=== PATIENT | female | born 1965 | race American Indian/Alaskan Native ===

== ENCOUNTER 2020-05-30 19:38 | Emergency (ER) | payer MEDICARE, MEDICAID ==
[2020-05-30] MEDS ORDERED: SODIUM CHLORIDE 0.9% 1000 ML 1,000 ML IV ONE (21:02)
--- NOTE | 2020-05-30 21:13 | Emergency Department Report ---
ED Abdominal Pain HPI - General Chief Complaint: Abdominal Pain Stated Complaint: ABDOMINAL PAIN PUI?: No Time Seen by Provider: 05/30/20 20:50 Source: patient, EMS Mode of arrival: Stretcher Limitations: No Limitations - History of Present Illness Initial Comments: Patient is a 54-year-old female that presents emergency room with complaints of abdominal pain. Patient states her abdominal pain is generalized. Patient dates her abdominal pain is a 10 out of 10. Patient states the pain is worse with movement and better with rest. Patient denies fever. Patient also complains of occasional nausea and vomiting. Patient was sent here from her personal shelter. 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 I discussed the patient's care and histories with patient's family member. MD Complaint: abdominal pain -: Sudden Location: diffuse Radiation: none Migration to: no migration Severity: severe Severity scale (0 -10): 10 Consistency: constant Improves With: rest Worsens With: movement Associated Symptoms: nausea, vomiting. denies: diarrhea, fever, chills, constipation, dysuria, hematemesis, hematochezia, melena, hematuria, syncope - Related Data LMP (females 10-50): unknown Previous Rx's Medication Instructions Recorded Last Taken Type Docusate Sodium [Colace CAP] 100 cap PO BID #30 cap 05/14/20 Unknown Rx Escitalopram [Lexapro] 10 mg PO DAILY PRN #30 05/14/20 Unknown Rx Insulin Glargine,Hum.rec.anlog 10 units SQ HS #1 05/14/20 Unknown Rx [Lantus Solostar] Levothyroxine [Synthroid] 75 mcg PO DAILY #30 05/14/20 Unknown Rx Lipase/Protease/Amylase [Creon Dr 12,000 units PO TID #90 cap 05/14/20 Unknown Rx 12,000 Units] OLANzapine [ZyPREXA] 10 mg PO HS #60 tablet 05/14/20 Unknown Rx Pantoprazole [Protonix TAB] 40 mg PO BID #60 05/14/20 Unknown Rx Primidone [Mysoline] 50 mg PO QHS #30 05/14/20 Unknown Rx hydrOXYzine PAMOATE [Vistaril] 50 cap PO TID #90 cap 05/14/20 Unknown Rx traZODone [Desyrel] 75 mg PO QHS #45 tablet 05/14/20 Unknown Rx Ondansetron [Zofran Odt] 4 mg PO Q6HR PRN #20 tab.rapdis 05/31/20 Unknown Rx Sennosides/Docusate Sodium 1 each PO BID 30 Days #60 tablet 05/31/20 Unknown Rx [Senna-S 8.6-50 mg Tablet] Allergies Allergy/AdvReac Type Severity Reaction Status Date / Time garlic Allergy Unknown Verified 05/07/20 08:26 Penicillins Allergy Unknown Verified 05/07/20 08:26 ED Review of Systems ROS: Stated complaint: ABDOMINAL PAIN Other details as noted in HPI Constitutional: denies: chills, fever Eyes: denies: eye pain, eye discharge, vision change ENT: denies: ear pain, throat pain Respiratory: denies: cough, shortness of breath, wheezing Cardiovascular: denies: chest pain, palpitations Endocrine: no symptoms reported Gastrointestinal: abdominal pain, nausea, vomiting. 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 drug abuse. Anoxic brain injury secondary to overdose - Surgical History Past Surgical History?: Yes Hx Cholecystectomy: Yes Additional Surgical History: Bariatric surgery. Hysterectomy - Family History Family history: no significant - Social History Smoking Status: Former Smoker - Medications Home Medications: Home Medications Medication Instructions Recorded Confirmed Last Taken Type Docusate Sodium [Colace CAP] 100 cap PO BID #30 cap 05/14/20 Unknown Rx Escitalopram [Lexapro] 10 mg PO DAILY PRN #30 05/14/20 Unknown Rx Insulin Glargine,Hum.rec.anlog 10 units SQ HS #1 05/14/20 Unknown Rx [Lantus Solostar] Levothyroxine [Synthroid] 75 mcg PO DAILY #30 05/14/20 Unknown Rx Lipase/Protease/Amylase [Creon Dr 12,000 units PO TID #90 cap 05/14/20 Unknown Rx 12,000 Units] OLANzapine [ZyPREXA] 10 mg PO HS #60 tablet 05/14/20 Unknown Rx Pantoprazole [Protonix TAB] 40 mg PO BID #60 05/14/20 Unknown Rx Primidone [Mysoline] 50 mg PO QHS #30 05/14/20 Unknown Rx hydrOXYzine PAMOATE [Vistaril] 50 cap PO TID #90 cap 05/14/20 Unknown Rx traZODone [Desyrel] 75 mg PO QHS #45 tablet 05/14/20 Unknown Rx Ondansetron [Zofran Odt] 4 mg PO Q6HR PRN #20 tab.rapdis 05/31/20 Unknown Rx Sennosides/Docusate Sodium 1 each PO BID 30 Days #60 tablet 05/31/20 Unknown Rx [Senna-S 8.6-50 mg Tablet] ED Physical Exam - General Limitations: No Limitations General appearance: alert, in no apparent distress - Head Head exam: Present: atraumatic, normocephalic - Eye Eye exam: Present: normal appearance - ENT ENT exam: Present: mucous membranes moist - Neck Neck exam: Present: normal inspection - Respiratory Respiratory exam: Present: normal lung sounds bilaterally. Absent: respiratory distress - Cardiovascular Cardiovascular Exam: Present: regular rate, normal rhythm. Absent: systolic murmur, diastolic murmur, rubs, gallop - GI/Abdominal GI/Abdominal exam: Present: soft, tenderness (Generalized tenderness), normal bowel sounds, other (Midline scar) - Extremities Exam Extremities exam: Present: normal inspection - Back Exam Back exam: Present: normal inspection - Neurological Exam Neurological exam: Present: alert, altered (Patient is alert and oriented x2) - Psychiatric Psychiatric exam: Present: normal affect, normal mood - Skin Skin exam: Present: warm, dry, intact, normal color. Absent: rash ED Course Vital Signs 05/30/20 05/30/20 05/30/20 20:20 20:30 20:45 Temperature 98.4 F Pulse Rate 61 60 59 L Respiratory 24 18 22 Rate Blood Pressure 102/75 97/67 Blood Pressure 93/61 [Left] O2 Sat by Pulse 100 97 Oximetry 05/30/20 05/30/20 05/30/20 21:00 21:20 21:46 Temperature Pulse Rate 57 L 62 58 L Respiratory 22 18 19 Rate Blood Pressure 106/73 106/73 106/73 Blood Pressure [Left] O2 Sat by Pulse Oximetry 05/30/20 05/30/20 05/30/20 22:00 22:15 22:16 Temperature Pulse Rate 63 64 Respiratory 15 20 18 Rate Blood Pressure 113/69 109/69 Blood Pressure [Left] O2 Sat by Pulse Oximetry 05/30/20 05/30/20 05/30/20 22:30 23:00 23:04 Temperature Pulse Rate 64 67 Respiratory 16 15 18 Rate Blood Pressure 111/71 124/71 Blood Pressure [Left] O2 Sat by Pulse 100 Oximetry 05/30/20 05/30/20 05/30/20 23:16 23:30 23:46 Temperature Pulse Rate 69 69 65 Respiratory 13 17 14 Rate Blood Pressure 115/64 115/67 131/72 Blood Pressure [Left] O2 Sat by Pulse 98 99 99 Oximetry 05/30/20 05/31/20 05/31/20 23:48 00:00 00:04 Temperature Pulse Rate 66 67 Respiratory 13 15 18 Rate Blood Pressure 131/72 121/65 Blood Pressure [Left] O2 Sat by Pulse 99 99 Oximetry 05/31/20 00:16 Temperature Pulse Rate 60 Respiratory 16 Rate Blood Pressure 149/67 Blood Pressure [Left] O2 Sat by Pulse 100 Oximetry - Reevaluation(s) Reevaluation #1: I discussed case with the patient's daughter for further history of presenting illness and past medical history. 05/30/20 21:31 Reevaluation #2: I discussed all results and clinical findings with patient. I discussed plan of care with patient. Patient agrees with plan of care. Patient is stable for discharge. Patient will be discharged home. Patient given discharge instructions. Patient voiced understanding of discharge instructions. 05/31/20 00:11 ED Medical Decision Making - Lab Data Result diagrams: 05/30/20 21:05 05/30/20 21:05 - Radiology Data Radiology results: report reviewed CT ABDOMEN AND PELVIS WITH CONTRAST INDICATION / CLINICAL INFORMATION: Pt complains of "Generalized" abdominal pain x 1 day. TECHNIQUE: Axial CT images were obtained through the abdomen and pelvis after 100 mL Omnipaque [address] scans at this location are performed using CT dose reduction for ALARA by means of automated exposure control. COMPARISON: None available. FINDINGS: LOWER CHEST: Nonspecific reticular opacities in the visualized lung bases. LIVER: No significant abnormality. BILIARY SYSTEM: Prior cholecystectomy. Mild intrahepatic biliary dilation is likely secondary to postcholecystectomy state. PANCREAS: Atrophic with parenchymal calcifications compatible with chronic pancreatitis. SPLEEN: No significant abnormality. ADRENALS: The left adrenal gland is unremarkable. There is a 1.7 cm indeterminate right adrenal nodule. 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 STOMACH / BOWEL: Postsurgical change related to gastric bypass without evidence of complication. Large colonic stool burden. PERITONEUM: No free fluid. No free air. No fluid collection. LYMPH NODES: No significant adenopathy. VASCULAR STRUCTURES: No significant abnormality. URINARY BLADDER: No significant abnormality. REPRODUCTIVE ORGANS: Prior hysterectomy. No adnexal mass. ADDITIONAL FINDINGS: None. SKELETAL SYSTEM: No significant abnormality. IMPRESSION: 1. Nonspecific reticular opacities in the visualized lung bases, correlate for any signs and symptoms of infection. 2. Large colonic stool burden suggestive of constipation. 3. Sequela of chronic pancreatitis. 4. Mild intrahepatic biliary dilation likely secondary to postcholecystectomy state, though recommend correlation with liver function tests. 5. A 1.7 cm right adrenal nodule is indeterminate. Recommend nonemergent adrenal protocol CT or MRI for further characterization. - Medical Decision Making Patient is a 54-year-old female that presents emergency room with generalized abdominal pain. Patient has a history of pancreatitis. Patient had labs done which were essentially unremarkable. Patient's UA was negative for UTI. Patient had a CT scan of the abdomen. Patient CT showed constipation and chronic pancreatitis. Patient stable for discharge. Patient discharged home. Patient's daughter was given her discharge and all of her clinical results. Patient discharged home with Zofran and a constipation medications, senna S. Patient already on Colace with instructions to take along with Colace. Patient discharged back to her personal shelter. - Differential Diagnosis Pancreatitis, abdominal pain, gastroenteritis, nausea, vomiting, UTI Critical care attestation.: If time is entered above; I have spent that time in minutes in the direct care of this critically ill patient, excluding procedure time. ED Disposition Clinical Impression: Gastroenteritis Abdominal pain Qualifiers: Abdominal location: generalized Qualified Code(s): R10.84 - Generalized abdominal pain Chronic pancreatitis Qualifiers: Pancreatitis type: unspecified pancreatitis type Qualified Code(s): K86.1 - Other chronic pancreatitis Nausea & vomiting Qualifiers: Vomiting type: unspecified Vomiting Intractability: non-intractable Qualified Code(s): R11.2 - Nausea with vomiting, unspecified Constipation Qualifiers: Constipation type: unspecified constipation type Qualified Code(s): K59.00 - Constipation, unspecified Disposition: TO HOME OR SELFCARE Is pt being admited?: No Does the pt Need Aspirin: No Condition: Stable Instructions: Constipation (ED), High Fiber Diet (ED), Gastroenteritis (ED), Acute Nausea and Vomiting (ED), Abdominal Pain (ED) Additional Instructions: Patient to follow-up with primary care in 2 to 3 days. Patient to follow-up with gastroenterology in 2 to 3 days. Patient to rest. Patient to increase water. Patient to eat a brat diet. Patient to take Tylenol or ibuprofen as needed for pain. Patient to take meds as directed. Patient to return to the ER if condition worsens, changes or new symptoms arise. Prescriptions: Sennosides/Docusate Sodium [Senna-S 8.6-50 mg Tablet] 1 each PO BID 30 Days #60 tablet Ondansetron [Zofran Odt] 4 mg PO Q6HR PRN #20 tab.rapdis PRN Reason: Nausea And Vomiting Referrals: PRIMARY CAREMD [Primary Care Provider] - 2-3 Days GÓMEZ FERNANDEZ MD [Staff Physician] - 2-3 Days Time of Disposition: 00:23
[2020-05-30] MEDS ORDERED: HYDROmorphone 1 MG/1 ML INJ IV ONE (21:30)
[2020-05-30 21:32] LABS: Basophils # (Auto) 0.1 K/mm3 (0.0-0.1); Basophils % (Auto) 0.8 % (0.0-1.8); Eosinophils # (Auto) 0.1 K/mm3 (0.0-0.4); Hematocrit 36.2 % (30.3-42.9); Hemoglobin 12.5 gm/dl (10.1-14.3); Lymphocytes # (Auto) 3.7 K/mm3 (1.2-5.4); Lymphocytes % (Auto) 39.1 % (13.4-35.0); Mean Corpuscular HGB Conc 35 % (30-34); Mean Corpuscular Volume 87 fl (79-97); Monocytes # (Auto) 0.7 K/mm3 (0.0-0.8); Monocytes % (Auto) 7.3 % (0.0-7.3); Platelet Count 211 K/mm3 (140-440); Red Blood Count 4.16 M/mm3 (3.65-5.03); Red Cell Distribution Width 15.9 % (13.2-15.2)
[2020-05-30 21:43] LABS: Alanine Aminotransferase 29 units/L (7-56); Albumin 3.6 g/dL (3.9-5); BUN/Creatinine Ratio 14; Blood Urea Nitrogen 17 mg/dL (7-17); Calcium 9.3 mg/dL (8.4-10.2); Hemolysis Index 5
[2020-05-30 21:47] LABS: Bilirubin,Direct < 0.2 mg/dL (0-0.2)
[2020-05-30] MEDS ORDERED: fentaNYL 100 MCG/2 ML INJ IV ONE (23:00)
--- NOTE | 2020-05-30 23:15 | Cat Scan Report ---
CT ABDOMEN AND PELVIS WITH CONTRAST INDICATION / CLINICAL INFORMATION: Pt complains of "Generalized" abdominal pain x 1 day. TECHNIQUE: Axial CT images were obtained through the abdomen and pelvis after 100 mL Omnipaque [address] scans at this location are performed using CT dose reduction for ALARA by means of automated exposure control. COMPARISON: None available. FINDINGS: LOWER CHEST: Nonspecific reticular opacities in the visualized lung bases. LIVER: No significant abnormality. BILIARY SYSTEM: Prior cholecystectomy. Mild intrahepatic biliary dilation is likely secondary to post cholecystectomy state. PANCREAS: Atrophic with parenchymal calcifications compatible with chronic pancreatitis. SPLEEN: No significant abnormality. ADRENALS: The left adrenal gland is unremarkable. There is a 1.7 cm indeterminate right adrenal nodul e. 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 STOMACH / BOWEL: Postsurgical change related to gastric bypass without evidence of complication. Larg e colonic stool burden. PERITONEUM: No free fluid. No free air. No fluid collection. LYMPH NODES: No significant adenopathy. VASCULAR STRUCTURES: No significant abnormality. URINARY BLADDER: No significant abnormality. REPRODUCTIVE ORGANS: Prior hysterectomy. No adnexal mass. ADDITIONAL FINDINGS: None. SKELETAL SYSTEM: No significant abnormality. IMPRESSION: 1. Nonspecific reticular opacities in the visualized lung bases, correlate for any signs and symptoms of infection. 2. Large colonic stool burden suggestive of constipation. 3. Sequela of chronic pancreatitis. 4. Mild intrahepatic biliary dilation likely secondary to postcholecystectomy state, though recommend correlation with liver function tests. 5. A 1.7 cm right adrenal nodule is indeterminate. Recommend nonemergent adrenal protocol CT or MRI f or further characterization. Signer Name: Kiera Guerrero MD Signed: 05/30/2020 11:11 PM Workstation Name: [id number]
[2020-05-30 23:59] LABS: Bilirubin,Urine NEG (Negative); Blood,Urine NEG (Negative); Color,Urine Colorless (Yellow); Mucus,Urine FEW /HPF; Protein,Urine <15 mg/dL mg/dL (Negative); Urobilinogen,Urine < 2.0 mg/dL (<2.0); WBC,Urine < 1.0 /HPF (0.0-6.0)
[2020-05-31 00:29] VITALS: BP 149/67
== END 2020-05-31 01:20 | disposition home or self-care (01) ==
LOC: ED 19:38
DX: K52.89 Other specified noninfective gastroenteritis and colitis (principal); K86.1 Other chronic pancreatitis; I10 Essential (primary) hypertension; E11.9 Type 2 diabetes mellitus without complications; F03.90 Unspecified dementia, unspecified severity, without behavioral disturbance, psychotic disturbance, mood disturbance, and anxiety; Z90.710 Acquired absence of both cervix and uterus; Z90.49 Acquired absence of other specified parts of digestive tract; Z79.899 Other long term (current) drug therapy; Z91.018 Allergy to other foods; Z88.0 Allergy status to penicillin; Z79.4 Long term (current) use of insulin
CPT/HCPCS: 36415; 74177; 80048; 80076; 81001; 83690; 85025; 96361; 96374; 96375; 99284; J1170; J3010; J7030; Q9967

== ENCOUNTER 2020-05-31 10:06 | Emergency (ER) | payer MEDICARE ==
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
[2020-05-31 11:51] LABS: Basophils % (Auto) 0.3 % (0.0-1.8); Eosinophils # (Auto) 0.1 K/mm3 (0.0-0.4); Eosinophils % (Auto) 1.1 % (0.0-4.3); Hematocrit 39.2 % (30.3-42.9); Hemoglobin 12.7 gm/dl (10.1-14.3); Lymphocytes # (Auto) 2.2 K/mm3 (1.2-5.4); Lymphocytes % (Auto) 30.7 % (13.4-35.0); Mean Corpuscular HGB Conc 33 % (30-34); Mean Corpuscular Volume 88 fl (79-97); Monocytes # (Auto) 0.5 K/mm3 (0.0-0.8); Monocytes % (Auto) 6.4 % (0.0-7.3); Platelet Count 236 K/mm3 (140-440); Red Blood Count 4.43 M/mm3 (3.65-5.03); Red Cell Distribution Width 16.2 % (13.2-15.2)
[2020-05-31 12:10] LABS: Alanine Aminotransferase 30 units/L (7-56); Albumin 3.5 g/dL (3.9-5); BUN/Creatinine Ratio 13; Blood Urea Nitrogen 14 mg/dL (7-17); Calcium 9.1 mg/dL (8.4-10.2); Hemolysis Index 12
[2020-05-31 12:16] LABS: Amphetamine Screen,Urine Negative; Benzodiazepines Screen,Urine Negative; Cannabinoid Screen,Urine Negative; Cocaine Screen,Urine Negative; Methadone Screen,Urine Negative; Opiate Screen,Urine Negative
[2020-05-31 12:27] LABS: Bilirubin,Urine NEG (Negative); Blood,Urine NEG (Negative); Color,Urine Straw (Yellow); Mucus,Urine FEW /HPF; Protein,Urine <15 mg/dL mg/dL (Negative); Urobilinogen,Urine < 2.0 mg/dL (<2.0)
[2020-05-31 14:33] VITALS: BP 110/64
== END 2020-05-31 19:15 ==
LOC: ED 10:06
DX: R45.1 Restlessness and agitation (principal); I10 Essential (primary) hypertension; E11.9 Type 2 diabetes mellitus without complications; K21.9 Gastro-esophageal reflux disease without esophagitis; Z79.4 Long term (current) use of insulin; Z79.899 Other long term (current) drug therapy; Z88.0 Allergy status to penicillin; Z88.8 Allergy status to other drugs, medicaments and biological substances
CPT/HCPCS: 36415; 80053; 80307; 80320; 81001; 84443; 84703; 85025; G0480

== ENCOUNTER → 2020-05-31 | Emergency (ER) | payer MEDICARE | LOC: ED 04:11 | DX: Z00.00 Encounter for general adult medical examination without abnormal findings (principal); Z53.21 Procedure and treatment not carried out due to patient leaving prior to being seen by health care provider ==

== ENCOUNTER 2020-06-03 11:48 | Emergency (ER) | payer MEDICARE ==
--- NOTE | 2020-06-03 12:19 | Emergency Department Report ---
Blank Doc - Documentation Documentation: 54-year-old female that presents with headache with worsening gait which sympt oms started yesterday around 8 AM. Exam: abnormal gait, some slurred speech. A/O x3. This initial assessment/diagnostic orders/clinical plan/treatment(s) is/are subject to change based on patient's health status, clinical progression and re- assessment by fellow clinical providers in the ED. Further treatment and workup at subsequent clinical providers discretion. Patient/guardians urged not to elope from the ED as their condition may be serious if not clinically assessed and managed. Initial orders include: 1- Patient sent to [facility] for further evaluation and treatment 2- stroke protocol initiated
--- NOTE | 2020-06-03 13:47 | Cat Scan Report ---
CT head/brain wo con INDICATION: Stroke symptoms. TECHNIQUE: Routine CT head without contrast. All CT scans at this location are performed using CT dos e reduction for ALARA by means of automated exposure control. COMPARISON: None. FINDINGS: BRAIN / INTRACRANIAL CONTENTS: No acute hemorrhage, mass effect, midline shift, or hydrocephalus. No appreciable acute large territorial or lacunar infarct. There is a small chronic infarct in the left frontal low convexity. Ventricular and cisternal size appears normal for age. ORBITS: No significant abnormality of visualized orbits. SINUSES / MASTOIDS: No significant abnormality of visualized sinuses and mastoid air cells. ADDITIONAL FINDINGS: None. IMPRESSION: 1. No appreciable acute infarct or other acute abnormality. 2. Chronic small volume left frontal lobe infarct. Signer Name: Kyle Briones MD Signed: 06/03/2020 1:43 PM Workstation Name: [id number]
[2020-06-03 15:19] LABS: INR 0.91 (0.87-1.13)
[2020-06-03 15:20] LABS: Partial Thromboplastin Time 27.3 Sec. (24.2-36.6); Thrombin Time 16.5 Sec. (15.1-19.6)
[2020-06-03 15:25] LABS: Alanine Aminotransferase 30 units/L (7-56); Albumin 3.9 g/dL (3.9-5); BUN/Creatinine Ratio 15; Blood Urea Nitrogen 15 mg/dL (7-17); Calcium 9.5 mg/dL (8.4-10.2); Hemolysis Index 10
[2020-06-03 15:27] LABS: Hematocrit 41.4 % (30.3-42.9); Hemoglobin 13.3 gm/dl (10.1-14.3); Mean Corpuscular HGB Conc 32 % (30-34); Mean Corpuscular Volume 88 fl (79-97); Platelet Count 265 K/mm3 (140-440); Red Blood Count 4.69 M/mm3 (3.65-5.03); Red Cell Distribution Width 16.5 % (13.2-15.2)
[2020-06-03 15:28] LABS: Basophils % (Auto) 0.5 % (0.0-1.8); Eosinophils % (Auto) 0.3 % (0.0-4.3); Lymphocytes % (Auto) 18.4 % (13.4-35.0); Monocytes % (Auto) 4.2 % (0.0-7.3)
[2020-06-03 15:29] LABS: Basophils # (Auto) 0.1 K/mm3 (0.0-0.1); Lymphocytes # (Auto) 2.9 K/mm3 (1.2-5.4); Monocytes # (Auto) 0.7 K/mm3 (0.0-0.8)
[2020-06-03 15:37] LABS: Creatine Kinase MB 1.9 ng/mL (0.0-4.0)
--- NOTE | 2020-06-03 16:46 | XRay Report ---
XR chest routine 2V INDICATION / CLINICAL INFORMATION: persistant cough. COMPARISON: 05/14/2020 FINDINGS: SUPPORT DEVICES: Left port is unchanged. HEART / MEDIASTINUM: No significant abnormality. LUNGS / PLEURA: Left basilar parenchymal opacities. Persistent mild blunting of the right costophren ic sulcus which is likely related to scarring. No definite effusion. No pneumothorax. ADDITIONAL FINDINGS: No significant additional findings. IMPRESSION: 1. Left basilar opacities could be related to atelectasis or airspace disease such as pneumonia. Signer Name: Yunior Harrison MD Signed: 06/03/2020 4:42 PM Workstation Name: [id number]
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
[2020-06-03] MEDS ORDERED: KETOROLAC 30 MG/1 ML INJ IM ONE (17:16)
[2020-06-03 18:02] LABS: Bilirubin,Urine NEG (Negative); Blood,Urine NEG (Negative); Color,Urine Straw (Yellow); Mucus,Urine FEW /HPF; Protein,Urine <15 mg/dL mg/dL (Negative); Urobilinogen,Urine < 2.0 mg/dL (<2.0); WBC,Urine < 1.0 /HPF (0.0-6.0)
[2020-06-03 18:10] LABS: Amphetamine Screen,Urine Negative; Benzodiazepines Screen,Urine Negative; Cannabinoid Screen,Urine Negative; Cocaine Screen,Urine Negative; Methadone Screen,Urine Negative; Opiate Screen,Urine Negative
--- NOTE | 2020-06-03 19:30 | Vascular Lab Report ---
VL venous duplex LE BILAT INDICATION / CLINICAL INFORMATION: LE pain. TECHNIQUE: Duplex doppler imaging was performed using venous compression and other maneuvers. COMPARISON: None available. FINDINGS: No venous thrombosis is identified within the visualized extremity vasculature. ADDITIONAL FINDINGS: None. IMPRESSION: 1. No sonographic evidence for DVT in the visualized bilateral lower extremity vasculature.. Signer Name: Yunior Harrison MD Signed: 06/03/2020 7:26 PM Workstation Name: [id number]
[2020-06-03] MEDS ORDERED: ALPRAZolam 0.5 MG TAB PO ONE (23:16)
[2020-06-04] MEDS ORDERED: IBUPROFEN 600 MG TAB PO ONE ×2 (12:06→12:09)
[2020-06-04] MEDS ORDERED: ALPRAZolam 0.5 MG TAB PO ONE (16:59)
[2020-06-04 20:32] VITALS: BP 149/89
== END 2020-06-04 23:14 | disposition home or self-care (01) ==
LOC: ED 11:48
DX: R51 Headache (principal); M79.605 Pain in left leg; M79.604 Pain in right leg; I10 Essential (primary) hypertension; E11.9 Type 2 diabetes mellitus without complications; K21.9 Gastro-esophageal reflux disease without esophagitis; F03.90 Unspecified dementia, unspecified severity, without behavioral disturbance, psychotic disturbance, mood disturbance, and anxiety; Z90.49 Acquired absence of other specified parts of digestive tract; Z90.710 Acquired absence of both cervix and uterus; Z98.890 Other specified postprocedural states; Z79.1 Long term (current) use of non-steroidal anti-inflammatories (NSAID); Z79.4 Long term (current) use of insulin; Z88.0 Allergy status to penicillin; Z91.018 Allergy to other foods
CPT/HCPCS: 36415; 70450; 71046; 80053; 80307; 81001; 82550; 82553; 82962; 84484; 85025; 85610; 85670; 85730; 93970; 96372; 99285; J1885; 80320; G0480